=== PATIENT | female | born 1945 | race Caucasian/White ===

== ENCOUNTER 2019-02-26 22:29 | Emergency (ER) | payer OTHER ==
[2019-02-26] MEDS ORDERED: ONDANSETRON HCL 4 MG/2 ML VIAL ONE (23:31)
[2019-02-26] MEDS ORDERED: DIAZEPAM 5 MG TABLET ONE (23:31)
[2019-02-26 23:33] LABS: BASOPHILS % (AUTO) 0.9 % (0.0-5.0); EOSINOPHILS % (AUTO) 5.5 % (0.0-8.0); HEMATOCRIT 39.6 % (36-48); LYMPHOCYTES % (AUTO) 36.4 % (21.0-51.0); MEAN CORPUSCULAR HEMOGLOBIN 30.7 pg (27.0-33.0); MEAN CORPUSCULAR HGB CONC 33.5 g/dL (32.0-36.0); MEAN CORPUSCULAR VOLUME 91.5 fL (79-99); MONOCYTES % (AUTO) 8.6 % (3.0-13.0); NEUTROPHILS % (AUTO) 48.6 % (40.0-77.0); NUCLEATED RED BLOOD CELLS 0.1 % (0.0-0.19); PLATELET COUNT (AUTO) 236 K/uL (130-400); RED BLOOD CELL COUNT(AUTO) 4.33 MIL/uL (4.00-5.50); WHITE BLOOD COUNT (AUTO) 7.7 K/uL (4.8-10.8)
[2019-02-27 00:06] LABS: CREATININE 1.3 mg/dL (0.5-1.5); POTASSIUM 4.3 mmol/L (3.5-5.1)
[2019-02-27 00:11] LABS: ALBUMIN 3.7 g/dL (3.5-5.0); BILIRUBIN,DIRECT 0.1 mg/dL (0.0-0.3); BILIRUBIN,TOTAL 0.3 mg/dL (0.2-1.0); TOTAL PROTEIN, SERUM 7.1 g/dL (6.0-8.3)
== END 2019-02-27 01:25 | disposition home or self-care (01) ==
LOC: EDH 22:29
DX: M54.5 Low back pain (principal); I10 Essential (primary) hypertension; M79.7 Fibromyalgia; E07.9 Disorder of thyroid, unspecified; I25.10 Atherosclerotic heart disease of native coronary artery without angina pectoris; Z98.890 Other specified postprocedural states
CPT/HCPCS: 36415; 74176; 80048; 80076; 83690; 84484; 85025; 93005; 96374; 99285; J2405

== ENCOUNTER → 2019-12-03 | Outpatient (CLI) | payer MEDICARE ==
[~2019-12-03] VITALS: Ht 172.7 cm; Wt 108.0 kg
[~2019-12-03] MED LIST: REGADENOSON 0.4 MG/5 ML PF SYG IVP SCH
== END | disposition home or self-care (01) ==
LOC: SHCH 08:32
PROVIDERS: ATTEND Internal Medicine Cardiovascular Disease
DX: R07.9 Chest pain, unspecified (principal)
CPT/HCPCS: 78452; 93017; 96374; A9500 ×2; J2785

== ENCOUNTER → 2019-12-23 | Outpatient (CLI) | payer MEDICARE | END | disposition home or self-care (01) | LOC: SHCH 14:55 | PROVIDERS: ATTEND Internal Medicine Cardiovascular Disease | DX: R07.9 Chest pain, unspecified (principal) | CPT/HCPCS: 93306; 93356 ==

== ENCOUNTER 2021-04-13 11:06 | Observation (INO) | payer MEDICARE, OTHER ==
[~2021-04-13] VITALS: Ht 172.7 cm; Wt 105.2 kg
[2021-04-13] MEDS ORDERED: 0.9%NACL 1000ML 1,000 ML IV ONE (13:42)
[2021-04-13 13:47] VITALS: BP 134/52
[2021-04-13 14:28] LABS: BASOPHILS % (AUTO) 0.3 % (0.0-5.0); EOSINOPHILS % (AUTO) 1.3 % (0.0-8.0); HEMATOCRIT 40.7 % (36-48); LYMPHOCYTES % (AUTO) 16.7 % (21.0-51.0); MEAN CORPUSCULAR HEMOGLOBIN 30.9 pg (27.0-33.0); MEAN CORPUSCULAR HGB CONC 32.9 g/dL (32.0-36.0); MEAN CORPUSCULAR VOLUME 93.8 fL (79-99); PLATELET COUNT (AUTO) 201 K/uL (130-400); RED BLOOD CELL COUNT(AUTO) 4.34 MIL/uL (4.00-5.50); RED CELL DISTRIBUTION WIDTH 13.4 % (11.0-15.5); WHITE BLOOD COUNT (AUTO) 11.2 K/uL (4.8-10.8)
[2021-04-13 14:42] LABS: CREATININE 2.3 mg/dL (0.5-1.5); POTASSIUM 3.8 mmol/L (3.5-5.1)
[2021-04-13 14:47] LABS: ALBUMIN 3.3 g/dL (3.5-5.0); BILIRUBIN,TOTAL 0.7 mg/dL (0.2-1.0); TOTAL PROTEIN, SERUM 7.3 g/dL (6.0-8.3)
[2021-04-13] MEDS: 0.9%NACL 1000ML 1,000 ML IV SCH ×2 (14:47→19:22)
[2021-04-13 15:36] VITALS: BP 137/45
[2021-04-13 15:56] LABS: APPEARANCE,URINE Cloudy (CLEAR); BILIRUBIN,URINE Negative (NEGATIVE); COLOR,URINE Yellow (YELLOW); GLUCOSE, URINE (UA) Negative (NEGATIVE); KETONES,URINE Negative (NEGATIVE); LEUKOCYTE ESTERASE ,URINE Negative (NEGATIVE); NITRATE,URINE Negative (NEGATIVE); OCCULT BLOOD,URINE Negative (NEGATIVE); PROTEIN,URINE POS 1+ mg/dL (NEGATIVE)
[2021-04-13 16:04] LABS: BACTERIA,URINE Few /HPF (None Seen); RBC,URINE 0-1 /HPF (0-1)
[2021-04-13 16:05] LABS: SQUAMOUS EPITHELIAL CELL,UR Rare /HPF (0-2)
[2021-04-13 16:06] LABS: TRANSITIONAL EPI CELLS,URINE Rare /HPF (None Seen)
[2021-04-13] MEDS ORDERED: ACETAMINOPHEN 325 MG TAB PO PRN ×2 (17:30)
[2021-04-13] MEDS ORDERED: ONDANSETRON 4MG INJ IV PRN (17:30)
[2021-04-13 17:42] VITALS: BP 131/47
[2021-04-13 17:58] LABS: HEMOGLOBIN A1C 6.5 % (4.0-6.0)
[2021-04-13 18:22] VITALS: BP 135/57
[2021-04-13] MEDS ORDERED: DEXTROSE 50%-WATER 50 ML DISP.SYRIN IV PRN (18:45)
[2021-04-13] MEDS ORDERED: GLUCAGON 1MG KIT 1 MG ML IM PRN (18:45)
[2021-04-13 19:29] LABS: CREATININE 2.2 mg/dL (0.5-1.5)
[2021-04-13] MEDS: INSULIN HUMULIN R 100 UNIT/ML 3ML SQ SCH (21:00)
[2021-04-13] MEDS: HEPARIN 5,000 UNIT VIAL SQ SCH (22:36)
[2021-04-13 23:57] VITALS: BP 128/52
[2021-04-14] VITALS (8 sets, daily range): BP systolic 133–155; BP diastolic 49–76
[2021-04-14 05:59] LABS: BASOPHILS % (AUTO) 0.5 % (0.0-5.0); EOSINOPHILS % (AUTO) 3.1 % (0.0-8.0); HEMATOCRIT 40.8 % (36-48); LYMPHOCYTES % (AUTO) 27.4 % (21.0-51.0); MEAN CORPUSCULAR HEMOGLOBIN 29.9 pg (27.0-33.0); MEAN CORPUSCULAR HGB CONC 31.4 g/dL (32.0-36.0); MEAN CORPUSCULAR VOLUME 95.3 fL (79-99); NEUTROPHILS % (AUTO) 57.1 % (40.0-77.0); PLATELET COUNT (AUTO) 183 K/uL (130-400); RED BLOOD CELL COUNT(AUTO) 4.28 MIL/uL (4.00-5.50); RED CELL DISTRIBUTION WIDTH 13.5 % (11.0-15.5); WHITE BLOOD COUNT (AUTO) 7.9 K/uL (4.8-10.8)
[2021-04-14 06:11] LABS: ALBUMIN 2.9 g/dL (3.5-5.0); BILIRUBIN,TOTAL 0.5 mg/dL (0.2-1.0); CREATININE 1.5 mg/dL (0.5-1.5); TOTAL PROTEIN, SERUM 6.9 g/dL (6.0-8.3)
[2021-04-14] MEDS: INSULIN HUMULIN R 100 UNIT/ML 3ML SQ SCH ×4 (07:30→21:00)
[2021-04-14] MEDS: HEPARIN 5,000 UNIT VIAL SQ SCH ×3 (07:45→22:51)
[2021-04-14] MEDS: 0.9%NACL 1000ML 1,000 ML IV SCH ×2 (07:45→15:02)
[2021-04-14] MEDS: FAMOTIDINE 20MG VIAL IV SCH (07:47)
[2021-04-14 10:28] LABS: AMPHET/METH SCREEN,URINE NEGATIVE (NEGATIVE); BARBITURATE SCREEN, URINE NEGATIVE (NEGATIVE); BENZODIAZEPINES SCREEN,URINE NEGATIVE (NEGATIVE); CANNABINOID SCREEN,URINE NEGATIVE (NEGATIVE); COCAINE SCREEN,URINE NEGATIVE (NEGATIVE); OPIATE SCREEN,URINE NEGATIVE (NEGATIVE); PHENCYCLIDINE SCREEN,URINE NEGATIVE (NEGATIVE)
[2021-04-15] VITALS: BP 127/78
[2021-04-15] MEDS: 0.9%NACL 1000ML 1,000 ML IV SCH (00:01)
[2021-04-15 04:00] VITALS: BP 145/70
[2021-04-15 05:08] LABS: BASOPHILS % (AUTO) 0.8 % (0.0-5.0); EOSINOPHILS % (AUTO) 5.1 % (0.0-8.0); HEMATOCRIT 37.9 % (36-48); MEAN CORPUSCULAR HEMOGLOBIN 30.9 pg (27.0-33.0); MEAN CORPUSCULAR HGB CONC 32.5 g/dL (32.0-36.0); MEAN CORPUSCULAR VOLUME 95.2 fL (79-99); MONOCYTES % (AUTO) 11.9 % (3.0-13.0); NEUTROPHILS % (AUTO) 46.1 % (40.0-77.0); PLATELET COUNT (AUTO) 178 K/uL (130-400); RED BLOOD CELL COUNT(AUTO) 3.98 MIL/uL (4.00-5.50); RED CELL DISTRIBUTION WIDTH 13.2 % (11.0-15.5); WHITE BLOOD COUNT (AUTO) 6.6 K/uL (4.8-10.8)
[2021-04-15 05:18] LABS: CREATININE 1.5 mg/dL (0.5-1.5); POTASSIUM 3.7 mmol/L (3.5-5.1)
[2021-04-15] MEDS: INSULIN HUMULIN R 100 UNIT/ML 3ML SQ SCH ×2 (05:52→11:30)
[2021-04-15 07:30] VITALS: BP 135/65
[2021-04-15] MEDS ORDERED: KCL 20 MEQ ERTAB PO SCH (09:51)
[2021-04-15] MEDS: FAMOTIDINE 20MG VIAL IV SCH (10:05)
[2021-04-15] MEDS: HEPARIN 5,000 UNIT VIAL SQ SCH (10:11)
[2021-04-15 11:00] VITALS: BP 98/69
[2021-04-15 13:03] LABS: THYROID STIMULATING HORMONE 1.3 uIU/mL (0.36-3.74)
[2021-04-15] MEDS ORDERED: ZOLP5TAB8 PO (14:19)
[2021-04-15] MEDS ORDERED: OMEP40CA21 PO (14:19)
[2021-04-15] MEDS ORDERED: TRAM50TA4 PO (14:19)
[2021-04-15] MEDS ORDERED: OXYB5TAB15 PO (14:19)
[2021-04-15] MEDS ORDERED: LEVO137C4 PO (14:19)
[2021-04-15] MEDS ORDERED: CARV3.12 PO (14:19)
[2021-04-15] MEDS ORDERED: ACET-2123 PO (14:19)
== END 2021-04-15 16:30 | disposition home or self-care (01) ==
LOC: EDH 11:06 → EDHIP 17:30 → 3DH 04-14 21:15
PROVIDERS: ADMIT Family Medicine; ATTEND Family Medicine
DX: G92 Toxic encephalopathy (principal); N17.9 Acute kidney failure, unspecified; R41.82 Altered mental status, unspecified; D72.829 Elevated white blood cell count, unspecified; E03.9 Hypothyroidism, unspecified; I12.9 Hypertensive chronic kidney disease with stage 1 through stage 4 chronic kidney disease, or unspecified chronic kidney disease; E11.22 Type 2 diabetes mellitus with diabetic chronic kidney disease; N18.9 Chronic kidney disease, unspecified; M62.82 Rhabdomyolysis; R13.10 Dysphagia, unspecified; R47.81 Slurred speech; E86.0 Dehydration; E86.9 Volume depletion, unspecified; Z90.49 Acquired absence of other specified parts of digestive tract; Z95.818 Presence of other cardiac implants and grafts; W18.39XA Other fall on same level, initial encounter; Y93.E1 Activity, personal bathing and showering; Y92.009 Unspecified place in unspecified non-institutional (private) residence as the place of occurrence of the external cause; Y99.8 Other external cause status
CPT/HCPCS: 36415 ×3; 70450; 71045; 76770; 80048; 80053 ×2; 80305; 81001; 82140; 82550 ×2; 82565; 82948 ×6; 83036; 83605; 83930; 84295; 84439; 84443; 85025 ×3; 92522; 92610; 93005; 96361 ×3; 96372 ×3; 96374; 96376; 97039 ×2; 97116; 97161; 99285; G0378 ×45; G8978; G8979; G8980; G8981; G8982; G8983; J1644 ×5; J3490 ×2; J7030